=== PATIENT | female | born 1950 | race Caucasian/White ===

== ENCOUNTER 2018-11-11 13:16 | Emergency (ER) | payer MEDICARE, OTHER ==
--- NOTE | 2018-11-11 14:20 | ER Document Report ---
ED Medical Screen (RME) - General Chief Complaint: Cough Stated Complaint: COUGH,CONGESTION Time Seen by Provider: 11/11/18 14:14 Mode of Arrival: Ambulatory Information source: Patient Notes: Patient is a 68-year-old female who presents to the emergency department complaining of dizziness, fatigue, cough, and sore throat that started on Sunday. Patient reports she did get influenza vaccine this year. Patient denies any fever. Patient reports history of pneumonia. Exam: Lung sounds clear to auscultation bilaterally. I have greeted and performed a rapid initial assessment of this patient. A comprehensive ED assessment and evaluation of the patient, analysis of test results and completion of the medical decision making process will be conducted by additional ED providers. Dictation of this chart was performed using voice recognition software; therefore, there may be some unintended grammatical errors. TRAVEL OUTSIDE OF THE [place] IN LAST 30 DAYS: No - Related Data Allergies/Adverse Reactions: Penicillins Allergy (Verified 11/11/18 13:21) Physical Exam - Vital signs Vitals: Temp Pulse Resp BP Pulse Ox 98.5 F 91 17 149/57 H 97 11/11/18 13:32 11/11/18 13:32 11/11/18 13:32 11/11/18 13:32 11/11/18 13:32 Course - Vital Signs Vital signs: Temp Pulse Resp BP Pulse Ox 98.5 F 91 17 149/57 H 97 11/11/18 13:32 11/11/18 13:32 11/11/18 13:32 11/11/18 13:32 11/11/18 13:32
--- NOTE | 2018-11-11 15:04 | RADIOLOGY REPORT (SQ) ---
EXAM DESCRIPTION: CHEST 2 VIEWS COMPLETED DATE/TIME: 11/11/2018 2:56 pm REASON FOR STUDY: productive cough, fatigue COMPARISON: None. EXAM PARAMETERS: NUMBER OF VIEWS: two views TECHNIQUE: Digital Frontal and Lateral radiographic views of the chest acquired. RADIATION DOSE: NA LIMITATIONS: none FINDINGS: LUNGS AND PLEURA: No opacities, masses or pneumothorax. No pleural effusion. MEDIASTINUM AND HILAR STRUCTURES: No masses or contour abnormalities. HEART AND VASCULAR STRUCTURES: Heart normal size. No evidence for failure. BONES: No acute findings. HARDWARE: None in the chest. OTHER: No other significant finding. IMPRESSION: NO ACUTE RADIOGRAPHIC FINDING IN THE CHEST. TECHNICAL DOCUMENTATION: JOB ID: [id number] [employer]- All Rights Reserved Reading location - IP/workstation name: [email or web address]
[2018-11-11 15:46] LABS: ABSOLUTE BASOPHILS # (AUTO) 0.1 10^3/uL (0.0-0.2); ABSOLUTE EOSINOPHILS # (AUTO) 0.5 10^3/uL (0.0-0.6); ABSOLUTE LYMPHOCYTES (AUTO) 2.2 10^3/uL (0.5-4.7); ABSOLUTE MONOCYTES (AUTO) 0.8 10^3/uL (0.1-1.4); ABSOLUTE NEUT (AUTO) 9.2 10^3/uL (1.7-8.2); BASOPHILS % (AUTO) 0.5 % (0-2); EOSINOPHILS % (AUTO) 3.9 % (0-6); HEMOGLOBIN 12.6 g/dL (12.0-15.5); LYMPHOCYTES % (AUTO) 17.5 % (13-45); MEAN CORPUSCULAR HEMOGLOBIN 30.9 pg (27.0-33.4); MEAN CORPUSCULAR VOLUME 93 fl (80-97); MONOCYTES % (AUTO) 6.5 % (3-13); PLATELET COUNT 265 10^3/uL (150-450); RED BLOOD COUNT 4.07 10^6/uL (3.72-5.28); RED CELL DISTRIBUTION WIDTH 12.9 % (11.5-14.0); SEGMENTED NEUTROPHILS % (AUTO) 71.6 % (42-78); TOTAL CELLS COUNTED % (AUTO) 100 %; WHITE BLOOD COUNT 12.8 10^3/uL (4.0-10.5)
[2018-11-11 15:56] LABS: APPEARANCE,URINE CLOUDY; BILIRUBIN,URINE NEGATIVE (NEGATIVE); COLOR,URINE AMBER; GLUCOSE, URINE NEGATIVE (NEGATIVE); KETONES,URINE NEGATIVE (NEGATIVE); LEUKOCYTE ESTERASE,URINE NEGATIVE (NEGATIVE); NITRITE,URINE NEGATIVE (NEGATIVE); PROTEIN,URINE 30 mg/dL (NEGATIVE); URINE SPECIFIC GRAVITY 1.025; UROBILINOGEN,URINE NEGATIVE mg/dL (<2.0)
[2018-11-11 16:09] LABS: ALANINE AMINOTRANSFERASE 41 U/L (9-52); ALBUMIN 3.9 g/dL (3.5-5.0); ALKALINE PHOSPHATASE 114 U/L (38-126); ANION GAP 10 (5-19); ASPARTATE AMINO TRANSFERASE 28 U/L (14-36); BILIRUBIN,DIRECT 0.3 mg/dL (0.0-0.4); BILIRUBIN,TOTAL 0.3 mg/dL (0.2-1.3); BLOOD UREA NITROGEN 20 mg/dL (7-20); CALCIUM 9.6 mg/dL (8.4-10.2); CARBON DIOXIDE 31 mmol/L (22-30); CHLORIDE 101 mmol/L (98-107); GLUCOSE 104 mg/dL (75-110); POTASSIUM 3.8 mmol/L (3.6-5.0); SODIUM 141.8 mmol/L (137-145); TOTAL PROTEIN 7.5 g/dL (6.3-8.2)
--- NOTE | 2018-11-11 17:35 | ER Document Report ---
ED General - General Chief Complaint: Cough Stated Complaint: COUGH,CONGESTION Time Seen by Provider: 11/11/18 14:14 Mode of Arrival: Ambulatory Notes: Patient is a 68-year-old female who presents to the emergency department complaining of dizziness, fatigue, cough, and sore throat that started on Sunday. Patient reports she did get influenza vaccine this year. Patient denies any fever. Patient reports history of pneumonia. TRAVEL OUTSIDE OF THE [place] IN LAST 30 DAYS: No - Related Data Allergies/Adverse Reactions: Penicillins Allergy (Verified 11/11/18 13:21) Past Medical History - General Information source: Patient - Social History Smoking Status: Never Smoker Chew tobacco use (# tins/day): No Frequency of alcohol use: None Drug Abuse: None Family History: Reviewed & Not Pertinent Patient has suicidal ideation: No Patient has homicidal ideation: No - Past Medical History Cardiac Medical History: Reports: Hx Hypercholesterolemia, Hx Hypertension Pulmonary Medical History: Reports: Hx Bronchitis, Hx Pneumonia Renal/ Medical History: Denies: Hx Peritoneal Dialysis GI Medical History: Reports: Hx Gastroesophageal Reflux Disease Psychiatric Medical History: Reports: Hx Depression - Anxiety Past Surgical History: Reports: Hx Mastectomy - double mastectomy Review of Systems - Review of Systems Constitutional: See HPI EENT: See HPI Cardiovascular: No symptoms reported Respiratory: See HPI Gastrointestinal: No symptoms reported Genitourinary: No symptoms reported Female Genitourinary: No symptoms reported Musculoskeletal: No symptoms reported Skin: No symptoms reported Hematologic/Lymphatic: No symptoms reported Neurological/Psychological: No symptoms reported Physical Exam - Vital signs Vitals: Temp Pulse Resp BP Pulse Ox 98.5 F 91 17 149/57 H 97 11/11/18 13:32 11/11/18 13:32 11/11/18 13:32 11/11/18 13:32 11/11/18 13:32 - Notes Notes: PHYSICAL EXAMINATION: GENERAL: Well-appearing, well-nourished and in no acute distress. HEAD: Atraumatic, normocephalic. EYES: Pupils equal round and reactive to light, extraocular movements intact, conjunctiva are normal. ENT: Nares patent, oropharynx clear without exudates. Moist mucous membranes. NECK: Normal range of motion, supple without lymphadenopathy LUNGS: Mild expiratory wheezes with rhonchi throughout. HEART: Regular rate and rhythm without murmurs ABDOMEN: Soft, nontender, nondistended abdomen. No guarding, no rebound. No masses appreciated. Female : deferred Musculoskeletal: Normal range of motion, no pitting or edema. No cyanosis. NEUROLOGICAL: Cranial nerves grossly intact. Normal speech, normal gait. Normal sensory, motor exams PSYCH: Normal mood, normal affect. SKIN: Warm, Dry, normal turgor, no rashes or lesions noted. Course - Re-evaluation Re-evalutation: Labs as recorded are unremarkable other than a mild leukocytosis of 12.8. Chest x-ray is negative for any acute infiltrates. Patient reports she has had recurrent bronchitis in the past. She will be discharged home with prednisone and Flonase. She is also given a prescription for Zithromax as she is allergic to penicillins patient encouraged to not fill this until she has been sick for at least 10 days. Patient given this prescription as she states she is leaving tomorrow to travel and will not have access to a medical provider. - Vital Signs Vital signs: Temp Pulse Resp BP Pulse Ox 98.6 F 98 18 127/56 H 97 11/11/18 17:37 11/11/18 17:37 11/11/18 17:37 11/11/18 17:37 11/11/18 17:37 - Laboratory Result Diagrams: 11/11/18 15:15 11/11/18 15:15 Laboratory results interpreted by me: 11/11/18 11/11/18 11/11/18 15:02 15:15 15:15 WBC 12.8 H Absolute Neutrophils 9.2 H Carbon Dioxide 31 H Urine Protein 30 H Discharge - Discharge Clinical Impression: Viral upper respiratory illness Condition: Stable Disposition: HOME, SELF-CARE Additional Instructions: UPPER RESPIRATORY ILLNESS: You have a viral infection of the respiratory passages -- a "cold." This common infection causes nasal congestion, drainage, and often sore throat and cough. It is highly contagious. The disease usually lasts about 10 to 14 days. There is no "cure" for the viral infection -- it must run its course. If there is a complication, such as bacterial infection in the nose, sinuses, middle ear, or bronchial tubes, antibiotics may be required. The antibiotics won't affect the virus. Drink plenty of fluids. A humidifier may help. An expectorant medication or decongestant may make you more comfortable. Use acetaminophen or ibuprofen for fever or aches. See the doctor if fever persists over two days, if there is any significant worsening of your symptoms, or if you simply fail to improve as expected. STEROID MEDICATION: You have been given an injection of or oral medicine of the cortisone/steroid class. This medication is used to control inflammation or allergy. Royal t is usually only given for a short period of time, until the acute process subsides. There are usually no side effects from short-term use of cortisone-like medications. Some persons feel an increased sense of well-being and are not sleepy at bedtime. Long-term use of cortisone medications is best avoided, unless required for a severe condition. If your condition does not remit, or relapses after the course of corticosteroid medication, you should consult your physician. SMOKING: If you smoke, you should stop smoking. The tar and chemicals in cigarette smoke are harmful. Smoking has been shown to cause: emphysema chronic bronchitis lung cancer mouth and throat cancer stomach and pancreas cancer premature aging defects In addition, smoking increases ear and lung infections in children of smokers. FOLLOW-UP CARE: If you have been referred to a physician for follow-up care, call the physicians office for an appointment as you were instructed or within the next two days. If you experience worsening or a significant change in your symptoms, notify the physician immediately or return to the Emergency Department at any time for re-evaluation. Your blood work and x-ray today were normal. Your likely suffering from a viral upper respiratory illness. Please take medications as prescribed. Follow-up with your primary care provider in the next 3-5 days for follow-up. Return to the emergency department with any new or worsening symptoms to include shortness of breath, difficulty breathing or development of chest pain. Prescriptions: Benzonatate [Tessalon Perles 100 mg Capsule] 100 mg PO Q8HP PRN #40 capsule PRN Reason: Doxycycline Hyclate 100 mg PO BID #14 capsule Prednisone [Deltasone 20 mg Tablet] 3 tab PO DAILY 5 Days #15 tablet Forms: Return to Work
[2018-11-11 17:38] VITALS: BP 127/56
== END 2018-11-11 17:42 | disposition home or self-care (01) ==
LOC: ER 13:16
DX: J06.9 Acute upper respiratory infection, unspecified (principal); B34.9 Viral infection, unspecified; R42 Dizziness and giddiness; R53.83 Other fatigue; Z88.0 Allergy status to penicillin; E78.00 Pure hypercholesterolemia, unspecified; I10 Essential (primary) hypertension; Z90.13 Acquired absence of bilateral breasts and nipples
CPT/HCPCS: 36415; 71046; 80053; 81001; 85025; 99283

== ENCOUNTER → 2019-04-23 | Outpatient (CLI) | payer MEDICARE, MEDICAID ==
--- NOTE | 2019-04-23 11:07 | RADIOLOGY REPORT (SQ) ---
EXAM DESCRIPTION: KNEE LEFT 4 VIEWS COMPLETED DATE/TIME: 04/23/2019 10:35 am REASON FOR STUDY: ACUTE PAIN OF LEFT KNEE M25.562 PAIN IN LEFT KNEE COMPARISON: None. NUMBER OF VIEWS: Four views. TECHNIQUE: AP, lateral, and both oblique radiographic images acquired of the left knee. LIMITATIONS: None. FINDINGS: MINERALIZATION: Normal. BONES: No acute fracture or dislocation. No worrisome bone lesions. JOINT: No effusion. SOFT TISSUES: No soft tissue swelling. No radio-opaque foreign body. OTHER: No other significant finding. IMPRESSION: NEGATIVE STUDY OF THE LEFT KNEE. NO RADIOGRAPHIC EVIDENCE OF ACUTE INJURY. TECHNICAL DOCUMENTATION: JOB ID: [id number] [employer]- All Rights Reserved Reading location - IP/workstation name: [email or web address]
== END ==
LOC: OD 10:08
PROVIDERS: ATTEND Family Medicine
DX: M25.562 Pain in left knee (principal)

== ENCOUNTER 2020-04-15 05:42 | Observation (INO) | payer MEDICARE, MEDICAID ==
[2020-04-12 09:51] LABS: ABSOLUTE BASOPHILS # (AUTO) 0.1 10^3/uL (0.0-0.2); ABSOLUTE EOSINOPHILS # (AUTO) 0.4 10^3/uL (0.0-0.6); ABSOLUTE LYMPHOCYTES (AUTO) 1.8 10^3/uL (0.5-4.7); ABSOLUTE MONOCYTES (AUTO) 0.6 10^3/uL (0.1-1.4); ABSOLUTE NEUT (AUTO) 5.1 10^3/uL (1.7-8.2); BASOPHILS % (AUTO) 1.2 % (0-2); EOSINOPHILS % (AUTO) 4.7 % (0-6); HEMATOCRIT 38.6 % (36.0-47.0); HEMOGLOBIN 12.9 g/dL (12.0-15.5); LYMPHOCYTES % (AUTO) 22.9 % (13-45); MEAN CORPUSCULAR HEMOGLOBIN 31.3 pg (27.0-33.4); MEAN CORPUSCULAR HGB CONC 33.5 g/dL (32.0-36.0); MEAN CORPUSCULAR VOLUME 93 fl (80-97); MONOCYTES % (AUTO) 7.5 % (3-13); PLATELET COUNT 273 10^3/uL (150-450); RED BLOOD COUNT 4.14 10^6/uL (3.72-5.28); RED CELL DISTRIBUTION WIDTH 14.7 % (11.5-14.0); SEGMENTED NEUTROPHILS % (AUTO) 63.7 % (42-78); TOTAL CELLS COUNTED % (AUTO) 100 %
[2020-04-12 10:22] LABS: ANION GAP 9 (5-19); BLOOD UREA NITROGEN 20 mg/dL (7-20); CALCIUM 9.3 mg/dL (8.4-10.2); CARBON DIOXIDE 31 mmol/L (22-30); CHLORIDE 101 mmol/L (98-107); GLUCOSE 85 mg/dL (75-110); POTASSIUM 4.2 mmol/L (3.6-5.0)
--- NOTE | 2020-04-12 12:15 | RADIOLOGY REPORT (SQ) ---
EXAM DESCRIPTION: CHEST PA/LATERAL IMAGES COMPLETED DATE/TIME: 04/12/2020 10:16 am REASON FOR STUDY: PRE-OP COMPARISON: 11/11/2018 EXAM PARAMETERS: NUMBER OF VIEWS: two views TECHNIQUE: Digital Frontal and Lateral radiographic views of the chest acquired. RADIATION DOSE: NA LIMITATIONS: none FINDINGS: LUNGS AND PLEURA: No opacities, masses or pneumothorax. No pleural effusion. MEDIASTINUM AND HILAR STRUCTURES: No masses or contour abnormalities. HEART AND VASCULAR STRUCTURES: Heart normal size. No evidence for failure. BONES: No acute findings. HARDWARE: None in the chest. OTHER: No other significant finding. IMPRESSION: NO SIGNIFICANT RADIOGRAPHIC FINDING IN THE CHEST. TECHNICAL DOCUMENTATION: JOB ID: [id number] 2010 [employer]- All Rights Reserved Reading location - IP/workstation name: [email or web address]
--- NOTE | 2020-04-12 12:32 | EKG REPORT ---
SEVERITY:- BORDERLINE ECG - SINUS RHYTHM BORDERLINE T WAVE ABNORMALITIES : Confirmed by: Cesar Marie MD 12-Apr-2020 12:30:20
[2020-04-12 12:43] LABS: APPEARANCE,URINE CLEAR; BILIRUBIN,URINE NEGATIVE (NEGATIVE); COLOR,URINE YELLOW; GLUCOSE, URINE NEGATIVE (NEGATIVE); KETONES,URINE NEGATIVE (NEGATIVE); LEUKOCYTE ESTERASE,URINE SMALL (NEGATIVE); NITRITE,URINE NEGATIVE (NEGATIVE); PROTEIN,URINE NEGATIVE (NEGATIVE); URINE SPECIFIC GRAVITY 1.019; UROBILINOGEN,URINE NEGATIVE mg/dL (<2.0)
[~2020-04-15 05:42] MED LIST: ACETAMINOPHEN 325 MG TABLET ONE; ACETAMINOPHEN 325 MG TABLET PO PRN; CEFAZOLIN 2 GM/D5W RTU 2 GM/50 ML RTUPB IV ONE; CEFAZOLIN 2 GM/D5W RTU 2 GM/50 ML RTUPB IV PRN; CELECOXIB 200 MG CAPSULE ONE; CELECOXIB 200 MG CAPSULE PO PRN; GABAPENTIN 100 MG CAPSULE ONE; GABAPENTIN 100 MG CAPSULE PO PRN; ONDANSETRON HCL INJ/PF 4 MG/2 ML SDV IV PRN; ONDANSETRON HCL INJ/PF 4 MG/2 ML SDV ONE; OXYCODONE HCL SR 10 MG TABLET PO ONE; OXYCODONE HCL SR 10 MG TABLET PO PRN; SCOPOLAMINE HYDROBROMIDE 1.5 MG PATCH.TD72 ONE; SCOPOLAMINE HYDROBROMIDE 1.5 MG PATCH.TD72 TD PRN; TRAMADOL HCL 50 MG TABLET ONE; TRAMADOL HCL 50 MG TABLET PO PRN; TRANEXAMIC ACID INJ/PF 1,000 MG/10 ML SDV IV PRN; VANCOMYCIN HCL 1,000 MG in DEXTROSE 5%-WATER 250 ML IV PRN
[2020-04-15] MEDS ORDERED: KETAMINE HCL INJ 500 MG/10 ML VIAL ONE (06:49)
[2020-04-15] MEDS ORDERED: FENTANYL CITRATE INJ/PF 100 MCG/2 ML AMPUL ONE ×3 (06:49→10:30)
[2020-04-15] MEDS ORDERED: MIDAZOLAM 2 MG/2 ML INJ ONE (06:50)
[2020-04-15] MEDS ORDERED: PROPOFOL INJ 200 MG/20 ML VIAL IV ONE (06:50)
[2020-04-15 06:58] LABS: ALBUMIN 4.4 g/dL (3.5-5.0); C-REACTIVE PROTEIN 6.4 mg/L (<10.0)
[2020-04-15] MEDS ORDERED: TRANEXAMIC ACID INJ/PF 1,000 MG/10 ML SDV ONE (06:59)
[2020-04-15] MEDS ORDERED: HYDROMORPHONE HCL INJ/PF 2 MG/ML AMPULE ONE (07:09)
[2020-04-15] MEDS ORDERED: LIDOCAINE 1% INJ-PF (10 MG/ML) 30 ML SDV ONE (07:11)
[2020-04-15] MEDS ORDERED: BUPIVACAINE HCL 0.25 % INJ/PF (2.5 MG/1 ML) 30 ML VIAL ONE (07:11)
[2020-04-15] MEDS ORDERED: KETOROLAC TROMETHAMINE INJ/PF 30 MG/1 ML SDV ONE (07:12)
[2020-04-15] MEDS ORDERED: MORPHINE SULFATE 10 MG/ML INJ IV PRN (07:21)
[2020-04-15] MEDS ORDERED: DOCUSATE SODIUM 100 MG CAPSULE PO PRN (07:21)
[2020-04-15] MEDS ORDERED: OXYCODONE HCL IR 5 MG TABLET PO PRN ×3 (07:21)
[2020-04-15] MEDS ORDERED: NORMAL SALINE 1000 ML 1,000 ML IV ONE (07:21)
[2020-04-15] MEDS ORDERED: DIPHENHYDRAMINE HCL 25 MG CAPSULE PO PRN (07:21)
[2020-04-15] MEDS ORDERED: TRAMADOL HCL 50 MG TABLET PO PRN (07:21)
[2020-04-15] MEDS ORDERED: TRANEXAMIC ACID INJ/PF 1,000 MG/10 ML SDV IV ONE (07:21)
[2020-04-15] MEDS ORDERED: PANTOPRAZOLE SODIUM 20 MG TABLET.DR PO ONE (07:21)
[2020-04-15] MEDS ORDERED: ZOLPIDEM TARTRATE 5 MG TABLET PO PRN (07:21)
[2020-04-15] MEDS ORDERED: DEXAMETHASONE SOD PHOS INJ 10 MG/1 ML VIAL IV ONE (07:21)
[2020-04-15] MEDS ORDERED: ONDANSETRON 4 MG TAB.RAPDIS PO PRN (07:21)
[2020-04-15] MEDS ORDERED: EPHEDRINE SULFATE INJ 50 MG/1 ML AMPULE ONE (08:17)
[2020-04-15] MEDS ORDERED: VANCOMYCIN HCL INJ 1000 MG VIAL ONE (08:32)
[2020-04-15] MEDS ORDERED: ONDANSETRON HCL INJ/PF 4 MG/2 ML SDV IV PRN (08:49)
[2020-04-15] MEDS ORDERED: OXYCODONE-ACETAMINOPHEN 5-325 MG TABLET PO PRN ×2 (08:49)
[2020-04-15] MEDS ORDERED: MEPERIDINE HCL/PF INJ 25 MG/1 ML DISP.SYRIN IV PRN (08:49)
[2020-04-15] MEDS ORDERED: DIPHENHYDRAMINE HCL 50 MG/ML VIAL IV PRN (08:49)
[2020-04-15] MEDS ORDERED: FENTANYL CITRATE INJ/PF 100 MCG/2 ML AMPUL IV PRN ×3 (08:49)
[2020-04-15] MEDS ORDERED: PROMETHAZINE HCL INJ 25 MG/1 ML VIAL IV PRN ×2 (08:49)
--- NOTE | 2020-04-15 09:36 | Operative Report ---
Operative Report DATE OF SURGERY: 04/15/20 PREOPERATIVE DIAGNOSIS: Left hip severe primary osteoarthritis POSTOPERATIVE DIAGNOSIS: Left hip primary severe osteoarthritis OPERATION: Left total hip arthroplasty SURGEON: HENRRY BARKSDALE JR ANESTHESIA: Spinal COMPLICATIONS: None ESTIMATED BLOOD LOSS: 200 cc PROCEDURE: Implants: Gurvinder Accolade 2 size 5 femoral stem with standard offset, a Trident 2 size 52 cup, and a standard liner, a -5 neck length 36 mm ceramic head BRIEF HISTORY: 70 year old female with severe degenerative arthritis of left hip, which has failed conservative treatment and has elected for a total hip arthroplasty. Risks include but are not limited to bleeding, infection, anesthesia, , injury to nerve or vessel, pain, scar, leg length inequality, dislocation, future surgery, and blood clots. Patient read through the pre-op counseling form and signed and consented for surgery on their left hip. OPERATIVE PROCEDURE: Patient was brought to the operating room on and underwent spinal anesthesia. 2 grams of Ancef and 1 g of vancomycin was given. After proper anesthesia was obtained, patient was positioned, padded, prepped, and draped in the usual sterile fashion on the operating room table. Appropriate time out was performed. An anterior approach to the hip was undertaken with meticulous hemostasis through the deep interval. A capsulectomy was performed followed by exposure of the femoral neck. The femoral neck was cut in line with the femoral broach and the femoral head was removed. The acetabulum was then exposed with three retractors in an atraumatic fashion. Soft tissue and osteophytes were removed. Medialization reaming was performed followed by anatomic reaming up to accept a 52 mm acetabulum. Wound was irrigated with dilute betadyne solution and the 52 mm acetabulum was impacted into correct position and stability checked by manipulating the impaction handle which rocked the pelvis. A standard liner was impacted into the shell with good stability. Potential impinging osteophytes were removed. Attention was then directed toward the femur, which was exposed with two retractors in an atraumatic fashion. A bone hook was placed to carefully perform releases along the superior capsule until the femur was safely delivered through the wound. A box feeder was utilized followed by lateralization rasping and then broaching up to accept a 5 femur. With a 132 offset neck and a -5 head, stability was good in flexion and extension with near equal (patient started off approximately 2 cm short) on the operative side leg lengths. The real 132 offset femur was impacted into a copiously irrigated femoral canal. A 36 mm ceramic head was impacted on a clean dry femoral taper. The hip was irrigated and reduced, further irrigation with antibiotic solution, betadine solution, then antibiotic solution. Bleeders were coagulated with bovie cautery. The fascia was then closed with number 2 Stratofix; the subcutaneous tissue closed with interrupted inverted 2-0 monocryl then running 3-0 monocryl subcuticular. A silver dressing was then applied. All needle sponge and instrument counts were correct. Patient was awakened from sedation anesthesia and taken to recovery room in good condition. Thank you, Henrry Barksdale, DO
[2020-04-15] MEDS ORDERED: ROPIVACAINE HCL 0.5% INJ/PF (5 MG/1 ML) 30 ML SDV ONE (09:43)
[2020-04-15] MEDS ORDERED: (PENDING PHARMACY ID) (Lisinopril/Hydrochlorothiazide [Lisinopril-Hctz 20-25 Mg Tab] 1 EAC PO SCH (10:00)
[2020-04-15] MEDS ORDERED: MORPHINE SULFATE 10 MG/ML INJ ONE (10:23)
[2020-04-15] MEDS: MORPHINE SULFATE 10 MG/ML INJ IV PRN ×2 (10:30→10:45)
--- NOTE | 2020-04-15 11:26 | RADIOLOGY REPORT (SQ) ---
EXAM DESCRIPTION: NO CHG FLUORO; HIP IN OPERATING RM IMAGES COMPLETED DATE/TIME: 04/15/2020 9:37 am REASON FOR STUDY: LEFT HIP ARTHROPLASTY ASSISTED WITH FLUORO IN OR M16.12 UNILATERAL PRIMARY OSTEOA RTHRITIS, LEFT HIP M25.552 PAIN IN LEFT HIP Z79.899 OTHER [facility] (CURRENT) DRUG THERAPY COMPARISON: None. FLUOROSCOPY TIME: 0.1 minutes 1 Images saved to PACS TECHNIQUE: Intra-operative images acquired during surgical procedure to evaluate progress. NUMBER OF IMAGES: 1 LIMITATIONS: None. FINDINGS: Limited intraoperative fluoroscopic images obtained demonstrate evidence of left hip arthr oplasty. Please see operative report for detailed description. IMPRESSION: IMAGE(S) OBTAINED DURING PROCEDURE. COMMENT: Quality ID [id number]: Final reports for procedures using fluoroscopy that document radiation exp osure indices, or exposure time and number of fluorographic images (if radiation exposure indices are not available) Please consult full operative report of the attending physician for description of the procedure. TECHNICAL DOCUMENTATION: JOB ID: [id number] 2010 [employer]- All Rights Reserved Reading location - IP/workstation name: [email or web address]
--- NOTE | 2020-04-15 11:26 | RADIOLOGY REPORT (SQ) ---
EXAM DESCRIPTION: NO CHG FLUORO; HIP IN OPERATING RM IMAGES COMPLETED DATE/TIME: 04/15/2020 9:37 am REASON FOR STUDY: LEFT HIP ARTHROPLASTY ASSISTED WITH FLUORO IN OR M16.12 UNILATERAL PRIMARY OSTEOA RTHRITIS, LEFT HIP M25.552 PAIN IN LEFT HIP Z79.899 OTHER [facility] (CURRENT) DRUG THERAPY COMPARISON: None. FLUOROSCOPY TIME: 0.1 minutes 1 Images saved to PACS TECHNIQUE: Intra-operative images acquired during surgical procedure to evaluate progress. NUMBER OF IMAGES: 1 LIMITATIONS: None. FINDINGS: Limited intraoperative fluoroscopic images obtained demonstrate evidence of left hip arthr oplasty. Please see operative report for detailed description. IMPRESSION: IMAGE(S) OBTAINED DURING PROCEDURE. COMMENT: Quality ID 145: Final reports for procedures using fluoroscopy that document radiation exp osure indices, or exposure time and number of fluorographic images (if radiation exposure indices are not available) Please consult full operative report of the attending physician for description of the procedure. TECHNICAL DOCUMENTATION: JOB ID: [id number] 2010 [employer]- All Rights Reserved Reading location - IP/workstation name: [email or web address]
--- NOTE | 2020-04-15 12:15 | RADIOLOGY REPORT (SQ) ---
EXAM DESCRIPTION: PELVIS AP IMAGES COMPLETED DATE/TIME: 04/15/2020 10:59 am REASON FOR STUDY: post op M16.12 UNILATERAL PRIMARY OSTEOARTHRITIS, LEFT HIP M25.552 PAIN IN LEFT HIP Z79.899 OTHER [facility] (CURRENT) DRUG THERAPY COMPARISON: None. NUMBER OF VIEWS: One view TECHNIQUE: AP Pelvis LIMITATIONS: None. FINDINGS: Postoperative image of the pelvis and proximal femurs shows a left hip arthroplasty in goo d position. IMPRESSION: Left hip arthroplasty. Refer to operative note for further information. COMMENT: Pelvic fractures are often occult on plain radiographs. If strong clinical suspicion for f racture, recommend CT or MR. TECHNICAL DOCUMENTATION: JOB ID: [id number] 2010 [employer]- All Rights Reserved Reading location - IP/workstation name: [email or web address]
[2020-04-15] MEDS: ASPIRIN 325 MG TABLET PO SCH (12:57)
[2020-04-15] MEDS: POLYETHYLENE GLYCOL 3350 POWDER 17 GM/1 PACKET PO SCH (12:57)
[2020-04-15] MEDS: CELECOXIB 200 MG CAPSULE PO SCH (12:57)
[2020-04-15] MEDS: VENLAFAXINE HCL 25 MG TABLET PO SCH (13:18)
[2020-04-15] MEDS: HYDROCHLOROTHIAZIDE 25 MG TABLET PO SCH (13:19)
[2020-04-15] MEDS: GABAPENTIN 100 MG CAPSULE PO SCH ×2 (13:21→22:15)
[2020-04-15] MEDS: LISINOPRIL 10 MG TABLET PO SCH (13:21)
[2020-04-15] MEDS ORDERED: CEFAZOLIN 2 GM/D5W RTU 2 GM/50 ML RTUPB IV SCH (14:00)
[2020-04-15] MEDS: KETOROLAC TROMETHAMINE INJ/PF 30 MG/1 ML SDV IV SCH ×2 (14:30→22:14)
[2020-04-15] MEDS: ACETAMINOPHEN 325 MG TABLET PO SCH ×2 (14:31→22:14)
[2020-04-15] MEDS: CEFAZOLIN SODIUM 2 GM in DEXTROSE 5%-WATER 100 ML IV SCH ×2 (14:31→22:15)
[2020-04-15] MEDS ORDERED: LIDOCAINE 2% INJ-PF (20 MG/ML) 2 ML AMPUL ONE (15:05)
[2020-04-15] MEDS ORDERED: ONDANSETRON HCL INJ/PF 4 MG/2 ML SDV ONE (15:05)
[2020-04-15] MEDS ORDERED: METOPROLOL TARTRATE PF/INJ 5 MG/5 ML SDV IV ONE (15:05)
[2020-04-15] MEDS ORDERED: PHENYLEPHRINE HCL INJ/PF 10 MG/1 ML SDV ONE (15:05)
[2020-04-15] MEDS: OXYCODONE HCL IR 5 MG TABLET PO PRN (20:37)
[2020-04-16] MEDS: KETOROLAC TROMETHAMINE INJ/PF 30 MG/1 ML SDV IV SCH ×2 (05:48→13:05)
[2020-04-16] MEDS: ACETAMINOPHEN 325 MG TABLET PO SCH ×3 (05:48→22:01)
--- NOTE | 2020-04-16 07:14 | PDOC PROGRESS REPORT ---
Subjective Progress Note for:: 04/16/20 Subjective:: The patient is doing well this AM. Pain is present but not out of proportion and well controlled on their current medications. She reported considerable pain last night and yesterday to the degree that it was difficult for her to ambulate, however improved this morning. There are no new symptoms or overnight events. Overall they are felling well without complaints. They deny chest pain, shortness of breath or motor or sensory loss. Reason For Visit: M16.12 UNILATERAL PRIMAR, M25.552 PAIN IN LEFT HIP Physical Exam Vital Signs: Temp Pulse Resp BP Pulse Ox 97.9 F 82 17 99/39 L 100 04/15/20 19:27 04/15/20 19:27 04/15/20 19:27 04/15/20 19:27 04/15/20 19:27 Intake & Output 04/15/20 04/16/20 04/17/20 06:59 06:59 06:59 Intake Total 0 5710 Output Total 50 Balance 0 5660 Weight 90 kg Physical Exam: Left lower extremity -Pulses 2+ distally -Compartments soft -Sensation grossly intact to L3-4-5 S1 -Motor grossly intact to EHL TA gastroc and quad No acute distress, alert and orient x3 Results Laboratory Results: 04/12/20 09:26 04/12/20 09:26 04/15/20 06:22 Blood Type A POSITIVE Antibody Screen NEGATIVE Impressions: Chest X-Ray 04/12/20 09:56 IMPRESSION: NO SIGNIFICANT RADIOGRAPHIC FINDING IN THE CHEST. Fluoroscopy 04/15/20 00:00 IMPRESSION: IMAGE(S) OBTAINED DURING PROCEDURE. Hip X-Ray 04/15/20 00:00 IMPRESSION: IMAGE(S) OBTAINED DURING PROCEDURE. Pelvis X-Ray 04/15/20 07:23 IMPRESSION: Left hip arthroplasty. Refer to operative note for further information. Assessment & Plan - Diagnosis (1) Status post total hip replacement, left Is this a current diagnosis for this admission?: Yes Plan: - 2 doses of Ancef postoperatively q 8 hours to complete 24 hours perioperat ively -Weightbearing as tolerated, no precautions, encourage out of bed JUSTUS for ADL training - PT/OT - Keep knee extended in bed, rolled towel under the ankle to obtain full extension -aspirin 325 daily for DVT prophylaxis for 6 weeks -multimodal pain management to avoid excessive narcotics, including gabapentin, tramadol, Toradol, acetaminophen. -Dressing should not be removed for 7 to 10 days until seen in the office -May shower with the dressing intact, if it starts to come off she should not get the incision wet. -Follow-up with Dr. Henrry Cortes, orthopedic surgeon at [facility] for surgery, in 10 days. Call for an appointment. . [address], [place] [address] - Time Time Spent with patient: Less than 15 minutes
[2020-04-16] MEDS: VENLAFAXINE HCL 25 MG TABLET PO SCH (09:13)
[2020-04-16] MEDS: GABAPENTIN 100 MG CAPSULE PO SCH ×2 (09:13→22:01)
[2020-04-16] MEDS: CELECOXIB 200 MG CAPSULE PO SCH (09:13)
[2020-04-16] MEDS: ASPIRIN 325 MG TABLET PO SCH (09:13)
[2020-04-16] MEDS: LISINOPRIL 10 MG TABLET PO SCH (09:14)
[2020-04-16] MEDS: HYDROCHLOROTHIAZIDE 25 MG TABLET PO SCH (09:14)
[2020-04-16] MEDS: POLYETHYLENE GLYCOL 3350 POWDER 17 GM/1 PACKET PO SCH (09:14)
[2020-04-16] MEDS: MORPHINE SULFATE 10 MG/ML INJ IV PRN (09:38)
[2020-04-17] MEDS: MORPHINE SULFATE 10 MG/ML INJ IV PRN (04:38)
[2020-04-17] MEDS: ACETAMINOPHEN 325 MG TABLET PO SCH (05:14)
--- NOTE | 2020-04-17 08:58 | PDOC DISCHARGE SUMMARY ---
Impression - Admit/DC Date/PCP Admission Date/Primary Care Provider: LEE RICCI DO Discharge Date: 04/17/20 - Discharge Diagnosis (1) Status post total hip replacement, left Is this a current diagnosis for this admission?: Yes - Assessment Summary: Mrs. Goldstein is a very pleasant 70-year-old female who presented to my clinic with chronic left pain that is been going on for over a year. After thorough work-up and attempts at conservative treatment including activity modification and [id number] pain medication, they were having severe difficulty with am bulation and was over the counter pain medication for daily activity. They found the pain debilitating and decreasing thier quality of life as they were unable to perform activities of daily living such as ambulating short distances and getting in and out of the car. After a thorough work-up including x-rays that demonstrated joint space narrowing, [id number] contact, subchondral sclerosis, and osteophyte formation as well as discussing risks and benefits and other treatment options, the patient elected to proceed with a left total hip arthroplasty. They were brought to the operating room on 04/15/2020 and underwent a left total hip and tolerated procedure very well with out complication. They were then admitted to the hospital floor for postoperative medical management, monitoring, and pain control. On postoperative day #1 they were ambulating well with physical therapy, to the degree that they approved them for discharge home. They remain in house for further care and disposition planning as well as continue physical therapy. They were deemed stable for discharge home on postoperative day #2 They were discharged home on 04/17/2020. They had no acute events or complications over the course of their stay. All detailed instructions and prescriptions were provided to the patient prior to admission on the year prior office visit. - Additional Information Resuscitation Status: Full Code Discharge Diet: As Tolerated Discharge Activity: Activity As Tolerated, No Driving, Keep Legs Elevated, Slowly Increase Activity, No tub bath, Walk Frequently Referrals: SARA BARKSDALE JR, DO [ACTIVE PROVISIONAL STAFF] - 04/26/20 9:10 am Home Medications: Buprenorphine 1 patch TOP TH@1000 04/12/20 Lisinopril/Hydrochlorothiazide [Lisinopril-Hctz 20-25 mg Tab] 1 each PO DAILY 04/12/20 Venlafaxine HCl [Effexor 25 mg Tablet] 25 mg PO DAILY 04/12/20 Acetaminophen [Tylenol 325 mg Tablet] 975 mg PO Q8 tablet 04/15/20 Aspirin [Aspirin 325 mg Tablet] 325 mg PO DAILY tablet 04/15/20 Celecoxib [Celebrex 200 mg Capsule] 200 mg PO DAILY capsule 04/15/20 Diphenhydramine HCl [Benadryl 25 mg Capsule] 25 mg PO Q6HP PRN capsule 04/15/20 Gabapentin [Neurontin 100 mg Capsule] 100 mg PO Q12 capsule 04/15/20 Oxycodone HCl [Oxy-Ir 5 mg Tablet] 5 mg PO NOW PRN tablet 04/15/20 Tramadol HCl [Ultram 50 mg Tablet] 50 mg PO Q4HP PRN tablet 04/15/20 History of Present Illiness History of Present Illness: GERARDO GOLDSTEIN is a 70 year old female Physical Exam Vital Signs: Temp Pulse Resp BP Pulse Ox 98.1 F 85 12 120/46 L 93 04/17/20 00:36 04/17/20 00:36 04/17/20 00:36 04/17/20 00:36 04/17/20 00:36 Intake & Output 04/16/20 04/17/20 04/18/20 06:59 06:59 06:59 Intake Total 5710 360 Output Total 50 Balance 5660 360 Results Laboratory Results: WBC 8.0 10^3/uL (4.0-10.5) 04/12/20 09:26 RBC 4.14 10^6/uL (3.72-5.28) 04/12/20 09:26 Hgb 12.9 g/dL (12.0-15.5) 04/12/20 09:26 Hct 38.6 % (36.0-47.0) 04/12/20 09:26 MCV 93 fl (80-97) 04/12/20 09:26 MCH 31.3 pg (27.0-33.4) 04/12/20 09:26 MCHC 33.5 g/dL (32.0-36.0) 04/12/20 09:26 RDW 14.7 % (11.5-14.0) H 04/12/20 09:26 Plt Count 273 10^3/uL (150-450) 04/12/20 09:26 Lymph % (Auto) 22.9 % (13-45) 04/12/20 09:26 [place] % (Auto) 7.5 % (3-13) 04/12/20 09:26 Eos % (Auto) 4.7 % (0-6) 04/12/20 09:26 Baso % (Auto) 1.2 % (0-2) 04/12/20 09:26 Absolute Neuts (auto) 5.1 10^3/uL (1.7-8.2) 04/12/20 09:26 Absolute Lymphs (auto) 1.8 10^3/uL (0.5-4.7) 04/12/20 09:26 Absolute Monos (auto) 0.6 10^3/uL (0.1-1.4) 04/12/20 09:26 Absolute Eos (auto) 0.4 10^3/uL (0.0-0.6) 04/12/20 09:26 Absolute Basos (auto) 0.1 10^3/uL (0.0-0.2) 04/12/20 09:26 Seg Neutrophils % 63.7 % (42-78) 04/12/20 09:26 ESR 51 mm/hr (0-30) H 04/15/20 06:22 Sodium 140.5 mmol/L (137-145) 04/12/20 09:26 Potassium 4.2 mmol/L (3.6-5.0) 04/12/20 09:26 Chloride 101 mmol/L (98-107) 04/12/20 09:26 Carbon Dioxide 31 mmol/L (22-30) H 04/12/20 09:26 Anion Gap 9 (5-19) 04/12/20 09:26 BUN 20 mg/dL (7-20) 04/12/20 09:26 Creatinine 0.75 mg/dL (0.52-1.25) 04/12/20 09:26 Est GFR ( Amer) > 60 (>60) 04/12/20 09:26 Est GFR (MDRD) Non-Af > 60 (>60) 04/12/20 09:26 Glucose 85 mg/dL (75-110) 04/12/20 09:26 Hemoglobin A1c % 5.2 % (4.7-6.0) 04/15/20 06:22 Calcium 9.3 mg/dL (8.4-10.2) 04/12/20 09:26 C-Reactive Protein 6.4 mg/L (<10.0) 04/15/20 06:22 Albumin 4.4 g/dL (3.5-5.0) 04/15/20 06:22 Vitamin D 25-Hydroxy 22.9 ng/mL (14.7-68.3) 04/15/20 06:22 Urine Color YELLOW 04/12/20 10:26 Urine Appearance CLEAR 04/12/20 10:26 Urine pH 5.0 (5.0-9.0) 04/12/20 10:26 Ur Specific [place] 1.019 04/12/20 10:26 Urine Protein NEGATIVE mg/dL (NEGATIVE) 04/12/20 10:26 Urine Glucose (UA) NEGATIVE mg/dL (NEGATIVE) 04/12/20 10:26 Urine Ketones NEGATIVE mg/dL (NEGATIVE) 04/12/20 10:26 Urine Blood NEGATIVE (NEGATIVE) 04/12/20 10:26 Urine Nitrite NEGATIVE (NEGATIVE) 04/12/20 10:26 Urine Bilirubin NEGATIVE (NEGATIVE) 04/12/20 10:26 Urine Urobilinogen NEGATIVE mg/dL (<2.0) 04/12/20 10:26 Ur Leukocyte Esterase SMALL (NEGATIVE) H 04/12/20 10:26 Urine WBC (Auto) 8 /HPF 04/12/20 10:26 Urine RBC (Auto) 1 /HPF 04/12/20 10:26 Squamous Epi Cells Auto <1 /HPF 04/12/20 10:26 Urine Mucus (Auto) RARE /LPF 04/12/20 10:26 Urine Ascorbic Acid 40 (NEGATIVE) H 04/12/20 10:26 COVID-19 Source NASOPHARYNGEAL 04/12/20 09:20 COVID-19 (KATHIE) NOT DETECTED 04/12/20 09:20 Blood Type A POSITIVE 04/15/20 06:22 Antibody Screen NEGATIVE 04/15/20 06:22 Impressions: Chest X-Ray 04/12/20 09:56 IMPRESSION: NO SIGNIFICANT RADIOGRAPHIC FINDING IN THE CHEST. Fluoroscopy 04/15/20 00:00 IMPRESSION: IMAGE(S) OBTAINED DURING PROCEDURE. Hip X-Ray 04/15/20 00:00 IMPRESSION: IMAGE(S) OBTAINED DURING PROCEDURE. Pelvis X-Ray 04/15/20 07:23 IMPRESSION: Left hip arthroplasty. Refer to operative note for further information. Stroke Is this a Stroke Patient?: No Acute Heart Failure - Is this a Heart Failure Patient?: No
[2020-04-17] MEDS: OXYCODONE HCL IR 5 MG TABLET PO PRN (09:34)
[2020-04-17] MEDS: CELECOXIB 200 MG CAPSULE PO SCH (09:34)
[2020-04-17] MEDS: GABAPENTIN 100 MG CAPSULE PO SCH (09:34)
[2020-04-17] MEDS: ASPIRIN 325 MG TABLET PO SCH (09:34)
[2020-04-17] MEDS: VENLAFAXINE HCL 25 MG TABLET PO SCH (09:34)
[2020-04-17 12:10] VITALS: BP 96/31
[2020-04-17] MEDS: POLYETHYLENE GLYCOL 3350 POWDER 17 GM/1 PACKET PO SCH (12:12)
[2020-04-17] MEDS: HYDROCHLOROTHIAZIDE 25 MG TABLET PO SCH (12:12)
[2020-04-17] MEDS: LISINOPRIL 10 MG TABLET PO SCH (12:12)
== END 2020-04-17 13:26 | disposition home health service (06) ==
LOC: OROUT 05:42 → 4W 05:42 → EDSTATUS 07:30 → OROUT 12:02 → 4W 12:02 → 4S 04-16 18:55 → OROUT 04-17 13:26 → 4S 04-17 13:26
PROVIDERS: ADMIT Orthopaedic Surgery; ATTEND Orthopaedic Surgery
DX: M16.12 Unilateral primary osteoarthritis, left hip (principal); I10 Essential (primary) hypertension; M79.7 Fibromyalgia; Z85.3 Personal history of malignant neoplasm of breast; Z87.891 Personal history of nicotine dependence; Z03.818 Encounter for observation for suspected exposure to other biological agents ruled out; Z79.82 Long term (current) use of aspirin; Z88.0 Allergy status to penicillin; Z79.899 Other long term (current) drug therapy
CPT/HCPCS: 27130; 93005; 86900; 86901; 36415 ×2; 86850; 82040; 85025; 85652; 86140; 80048; 81001; 83036; 82306; 71046; 73501; 72170; 93010; 97530 ×3; 97110; 97116 ×3; 97163; 97535; 97167; 64447; 76942; 01214; G0378 ×3; C1776 ×4; U0003; A9270 ×21; J2795; J2250; J0690 ×2; J3490 ×8; J3010; J1885 ×2; J2270 ×3; J2370; J2405; J7060 ×2; J2704; J3370; C9803; 87635; J1170; S0119

== ENCOUNTER 2020-04-27 05:24 | Inpatient (IN) | payer MEDICARE, MEDICAID ==
[~2020-04-27 05:24] MED LIST changes: -ACETAMINOPHEN 325 MG TABLET ONE; -ACETAMINOPHEN 325 MG TABLET PO PRN; -CELECOXIB 200 MG CAPSULE ONE; -CELECOXIB 200 MG CAPSULE PO PRN; -GABAPENTIN 100 MG CAPSULE ONE; -GABAPENTIN 100 MG CAPSULE PO PRN; -ONDANSETRON HCL INJ/PF 4 MG/2 ML SDV IV PRN; -ONDANSETRON HCL INJ/PF 4 MG/2 ML SDV ONE; -OXYCODONE HCL SR 10 MG TABLET PO ONE; -OXYCODONE HCL SR 10 MG TABLET PO PRN; -SCOPOLAMINE HYDROBROMIDE 1.5 MG PATCH.TD72 ONE; -SCOPOLAMINE HYDROBROMIDE 1.5 MG PATCH.TD72 TD PRN; -TRAMADOL HCL 50 MG TABLET ONE; -TRAMADOL HCL 50 MG TABLET PO PRN; -TRANEXAMIC ACID INJ/PF 1,000 MG/10 ML SDV IV PRN
[2020-04-27 06:02] LABS: APPEARANCE,URINE CLEAR; BILIRUBIN,URINE NEGATIVE (NEGATIVE); COLOR,URINE YELLOW; GLUCOSE, URINE NEGATIVE (NEGATIVE); KETONES,URINE NEGATIVE (NEGATIVE); LEUKOCYTE ESTERASE,URINE TRACE (NEGATIVE); NITRITE,URINE NEGATIVE (NEGATIVE); PROTEIN,URINE NEGATIVE (NEGATIVE); URINE SPECIFIC GRAVITY 1.017; UROBILINOGEN,URINE NEGATIVE mg/dL (<2.0)
[2020-04-27 06:23] LABS: ABSOLUTE BASOPHILS # (AUTO) 0.1 10^3/uL (0.0-0.2); ABSOLUTE EOSINOPHILS # (AUTO) 0.4 10^3/uL (0.0-0.6); ABSOLUTE LYMPHOCYTES (AUTO) 2.1 10^3/uL (0.5-4.7); ABSOLUTE MONOCYTES (AUTO) 0.6 10^3/uL (0.1-1.4); ABSOLUTE NEUT (AUTO) 4.3 10^3/uL (1.7-8.2); BASOPHILS % (AUTO) 1.4 % (0-2); EOSINOPHILS % (AUTO) 5.7 % (0-6); HEMATOCRIT 30.9 % (36.0-47.0); HEMOGLOBIN 10.3 g/dL (12.0-15.5); LYMPHOCYTES % (AUTO) 27.9 % (13-45); MEAN CORPUSCULAR HEMOGLOBIN 31.8 pg (27.0-33.4); MEAN CORPUSCULAR HGB CONC 33.4 g/dL (32.0-36.0); MEAN CORPUSCULAR VOLUME 95 fl (80-97); MONOCYTES % (AUTO) 7.3 % (3-13); PLATELET COUNT 463 10^3/uL (150-450); RED BLOOD COUNT 3.24 10^6/uL (3.72-5.28); RED CELL DISTRIBUTION WIDTH 14.7 % (11.5-14.0); SEGMENTED NEUTROPHILS % (AUTO) 57.7 % (42-78); TOTAL CELLS COUNTED % (AUTO) 100 %; WHITE BLOOD COUNT 7.5 10^3/uL (4.0-10.5)
[2020-04-27 06:36] LABS: ANION GAP 10 (5-19); BLOOD UREA NITROGEN 19 mg/dL (7-20); CALCIUM 8.8 mg/dL (8.4-10.2); CARBON DIOXIDE 28 mmol/L (22-30); CHLORIDE 103 mmol/L (98-107); GLUCOSE 90 mg/dL (75-110); POTASSIUM 4.5 mmol/L (3.6-5.0)
[2020-04-27] MEDS ORDERED: ONDANSETRON HCL INJ/PF 4 MG/2 ML SDV ONE (06:56)
[2020-04-27] MEDS ORDERED: PROPOFOL INJ 200 MG/20 ML VIAL IV ONE (06:56)
[2020-04-27] MEDS ORDERED: FENTANYL CITRATE INJ/PF 100 MCG/2 ML AMPUL ONE (06:56)
[2020-04-27] MEDS ORDERED: MIDAZOLAM 2 MG/2 ML INJ ONE (06:56)
[2020-04-27] MEDS ORDERED: EPHEDRINE SULFATE INJ 50 MG/1 ML AMPULE ONE (07:03)
[2020-04-27] MEDS ORDERED: KETOROLAC TROMETHAMINE INJ/PF 30 MG/1 ML SDV ONE (08:14)
[2020-04-27] MEDS ORDERED: BUPIVACAINE HCL 0.25 % INJ/PF (2.5 MG/1 ML) 30 ML VIAL ONE (08:14)
[2020-04-27] MEDS ORDERED: LIDOCAINE 1% INJ-PF (10 MG/ML) 30 ML SDV ONE (08:14)
[2020-04-27] MEDS ORDERED: VANCOMYCIN HCL INJ 1000 MG VIAL ONE (08:14)
[2020-04-27] MEDS ORDERED: TRANEXAMIC ACID INJ/PF 1,000 MG/10 ML SDV ONE (08:53)
[2020-04-27] MEDS ORDERED: MORPHINE SULFATE 10 MG/ML INJ IV PRN ×3 (09:20→10:21)
[2020-04-27] MEDS ORDERED: MEPERIDINE HCL/PF INJ 25 MG/1 ML DISP.SYRIN IV PRN (09:20)
[2020-04-27] MEDS ORDERED: DIPHENHYDRAMINE HCL 50 MG/ML VIAL IV PRN (09:20)
[2020-04-27] MEDS ORDERED: FENTANYL CITRATE INJ/PF 100 MCG/2 ML AMPUL IV PRN ×3 (09:20)
[2020-04-27] MEDS ORDERED: PROMETHAZINE HCL INJ 25 MG/1 ML VIAL IV PRN ×2 (09:20)
[2020-04-27] MEDS ORDERED: OXYCODONE-ACETAMINOPHEN 5-325 MG TABLET PO PRN (09:20)
--- NOTE | 2020-04-27 10:20 | Operative Report ---
Operative Report DATE OF SURGERY: 04/27/20 PREOPERATIVE DIAGNOSIS: Left hip postoperative seroma POSTOPERATIVE DIAGNOSIS: Left hip postoperative superficial seroma OPERATION: Left hip superficial I&D SURGEON: SARA BARKSDALE JR ANESTHESIA: GA COMPLICATIONS: None ESTIMATED BLOOD LOSS: 100 cc PROCEDURE: The patient was brought in the operating suite and laid supine on the operating table. They are provided 2 g of Ancef and 1 g of vancomycin preoperatively. They are provided with general anesthesia and after adequate anesthesia the left lower extremities and prepped and draped essential fashion. A timeout was performed followed by marking the prior incision. Incision was made and carried through the skin. Preoperatively a mild amount of weeping was occurring through multiple small areas in the wound. Upon incising immediate flow of serous material was appreciated. This was serosanguineous in appearance. Multiple cultures were taken. We further exposed to the fascia which appeared to be intact. At this point thorough debridement was performed with a large unger elevator and cultures were sent for in specimen cups. After 3 L of Betadine impregnated solution and thorough debridement the fascia was then further explored. I was unable to appreciate much fluctuance under the fascia or any area of potential leakage or communication to the hip joint. In order to further evaluate for deep seroma, I decided to aspirate the intra-articular portion. A 18-gauge spinal needle was used outside of the wound and clean nondilated tissue and directed towards the hip joint. The needle tip was appreciably against the implant and aspiration was performed which was only able to return approximately 5 cc of serosanguineous fluid without appearance of infection. This was also sent for culture. given the low return in appearance, as well as the watertight closure of the fascia that had no apparent violation, the decision was made not to proceed deep to the hip joint in order to avoid potentially contaminating a sterile hip. At this point we proceeded to perform an Aricept soak and allow to sit for 2 minutes followed by 3 L of Betadine followed by further debridement and sent for a second culture of superficial tissue. A second Aricept soak was performed in this layer followed by a final 3 L of Betadine solution. Finally a thorough evaluation for any potential bleeding was performed. Ultimately this point the tissue all appeared to be healthy without necrotic appearance and there was no obvious bleeding source however the surrounding tissue did appear somewhat edematous and [place]. Any small bleeders were cauterized followed by the application of FloSeal that was spread throughout the wound followed by 1 g of vancomycin in the soft tissue. The wound was closed deep with #2 Quill. The superficial layer was closed with inverted interrupted 2-0 Monocryl and finally 3-0 Vicryl was used in the skin in a running horizontal mattress type stitch. A layer of Acticoat was placed over the wound followed by a negative pressure incisional dressing. Patient was then waking from anesthesia and transferred t he PACU in stable condition.
[2020-04-27] MEDS ORDERED: OXYCODONE HCL IR 5 MG TABLET PO PRN ×4 (10:21)
[2020-04-27] MEDS ORDERED: DIPHENHYDRAMINE HCL 25 MG CAPSULE PO PRN (10:21)
[2020-04-27] MEDS ORDERED: ZOLPIDEM TARTRATE 5 MG TABLET PO PRN (10:21)
[2020-04-27] MEDS ORDERED: DEXAMETHASONE SOD PHOS INJ 10 MG/1 ML VIAL IV ONE (10:21)
[2020-04-27] MEDS ORDERED: NORMAL SALINE 1000 ML 1,000 ML IV ONE (10:21)
[2020-04-27] MEDS ORDERED: DOCUSATE SODIUM 100 MG CAPSULE PO PRN (10:21)
[2020-04-27] MEDS ORDERED: PANTOPRAZOLE SODIUM 20 MG TABLET.DR PO ONE (10:21)
[2020-04-27] MEDS ORDERED: TRANEXAMIC ACID INJ/PF 1,000 MG/10 ML SDV IV ONE (10:21)
[2020-04-27] MEDS ORDERED: ONDANSETRON 4 MG TAB.RAPDIS PO PRN (10:21)
[2020-04-27] MEDS ORDERED: FUROSEMIDE 40 MG TABLET PO ONE (11:30)
[2020-04-27] MEDS: ACETAMINOPHEN 325 MG TABLET PO SCH ×3 (12:43→23:44)
[2020-04-27] MEDS ORDERED: CEFAZOLIN 2 GM/D5W RTU 2 GM/50 ML RTUPB IV SCH (14:00)
[2020-04-27] MEDS: KETOROLAC TROMETHAMINE INJ/PF 30 MG/1 ML SDV IV SCH ×2 (15:11→21:50)
[2020-04-27] MEDS: CEFAZOLIN SODIUM 2 GM in DEXTROSE 5%-WATER 100 ML IV SCH ×2 (15:14→21:49)
[2020-04-27] MEDS ORDERED: ROCURONIUM BROMIDE INJ 50 MG/5 ML VIAL IV ONE (15:21)
[2020-04-27] MEDS ORDERED: DEXAMETHASONE SOD PHOSPHATE INJ 4 MG/1 ML VIAL ONE (15:21)
[2020-04-27] MEDS ORDERED: PHENYLEPHRINE HCL INJ/PF 10 MG/1 ML SDV ONE (15:21)
[2020-04-27] MEDS ORDERED: SUCCINYLCHOLINE CHLORIDE INJ 200 MG/10 ML VIAL ONE (15:21)
[2020-04-27] MEDS ORDERED: GLYCOPYRROLATE 1 MG/5 ML VIAL ONE (15:21)
[2020-04-27] MEDS ORDERED: NEOSTIGMINE METHYLSULFATE 10 MG/10 ML VIAL ONE (15:21)
[2020-04-27] MEDS: GABAPENTIN 100 MG CAPSULE PO SCH (21:50)
[2020-04-28] MEDS: TRAMADOL HCL 50 MG TABLET PO PRN ×2 (02:07→21:37)
[2020-04-28] MEDS: KETOROLAC TROMETHAMINE INJ/PF 30 MG/1 ML SDV IV SCH ×2 (05:20→13:10)
[2020-04-28] MEDS: ACETAMINOPHEN 325 MG TABLET PO SCH ×4 (05:20→23:18)
[2020-04-28] MEDS ORDERED: CELECOXIB 200 MG CAPSULE PO SCH (10:00)
[2020-04-28] MEDS ORDERED: (PENDING PHARMACY ID) (Lisinopril/Hydrochlorothiazide [Lisinopril-Hctz 20-25 Mg Tab] 1 EAC PO SCH (10:00)
[2020-04-28] MEDS ORDERED: ASPIRIN 325 MG TABLET PO SCH (10:00)
[2020-04-28] MEDS: POLYETHYLENE GLYCOL 3350 POWDER 17 GM/1 PACKET PO SCH (10:01)
[2020-04-28] MEDS: GABAPENTIN 100 MG CAPSULE PO SCH ×2 (10:02→21:37)
[2020-04-28] MEDS: VENLAFAXINE HCL 25 MG TABLET PO SCH (10:03)
[2020-04-28] MEDS: LISINOPRIL 10 MG TABLET PO SCH (10:03)
[2020-04-28] MEDS: HYDROCHLOROTHIAZIDE 25 MG TABLET PO SCH (10:03)
[2020-04-28] MEDS ORDERED: FUROSEMIDE 40 MG TABLET PO ONE ×2 (14:00→17:00)
[2020-04-28] MEDS: SULFAMETHOXAZOLE/TRIMETHOPRIM 800-160 MG TABLET PO SCH (21:37)
[2020-04-29] MEDS: ACETAMINOPHEN 325 MG TABLET PO SCH ×2 (05:20→11:37)
--- NOTE | 2020-04-29 07:40 | PDOC PROGRESS REPORT ---
Subjective Progress Note for:: 04/28/20 Subjective:: Patient doing well, refused PT yesterday. Otherwise reports ability to ambulate on her own and get herself to the bathroom without much pain. Reason For Visit: LEFT HIP POST OPERATIVE SEROMA Physical Exam Vital Signs: Temp Pulse Resp BP Pulse Ox 97.8 F 87 18 105/44 L 95 04/29/20 00:22 04/29/20 00:22 04/29/20 00:22 04/29/20 00:22 04/29/20 00:22 Intake & Output 04/28/20 04/29/20 04/30/20 06:59 06:59 06:59 Intake Total 57785 915 Output Total 100 Balance 38509 915 Weight 104.9 kg 96.1 kg Physical Exam: LLE - Dressing C/D/I, no fluid in vac - NVI - 1+ edema diffusely - Still mild leakage of serous fluid from her skin at the location of the needle aspiration for the hip. Results Laboratory Results: 04/27/20 06:05 04/27/20 06:05 Assessment & Plan - Diagnosis (1) Seroma after procedure Is this a current diagnosis for this admission?: Yes Plan: - Switch to PO bactrim - WBAT - Vac dressing changes every 3-5 days - Follow cultures - will DC with vac and home care for incisional vac changes. (2) Status post total hip replacement, left Is this a current diagnosis for this admission?: Yes - Time Time Spent with patient: Less than 15 minutes
[2020-04-29] MEDS: POLYETHYLENE GLYCOL 3350 POWDER 17 GM/1 PACKET PO SCH (09:05)
[2020-04-29] MEDS: HYDROCHLOROTHIAZIDE 25 MG TABLET PO SCH (09:12)
[2020-04-29] MEDS: GABAPENTIN 100 MG CAPSULE PO SCH (09:12)
[2020-04-29] MEDS: VENLAFAXINE HCL 25 MG TABLET PO SCH (09:12)
[2020-04-29] MEDS: SULFAMETHOXAZOLE/TRIMETHOPRIM 800-160 MG TABLET PO SCH (09:12)
[2020-04-29] MEDS: LISINOPRIL 10 MG TABLET PO SCH (09:13)
[2020-04-29] MEDS ORDERED: BUPRENORPHINE TOP SCH (10:00)
--- NOTE | 2020-04-29 10:06 | PDOC PROGRESS REPORT ---
Subjective Progress Note for:: 04/29/20 Subjective:: Patient doing well this morning. Has been able to ambulate with physical therapy yesterday and is doing well on her own as well. No overnight events patient wishes to return home today. Reason For Visit: LEFT HIP POST OPERATIVE SEROMA Physical Exam Vital Signs: Temp Pulse Resp BP Pulse Ox 98.3 F 80 17 128/51 H 98 04/29/20 08:38 04/29/20 07:58 04/29/20 07:58 04/29/20 07:58 04/29/20 07:58 Intake & Output 04/28/20 04/29/20 04/30/20 06:59 06:59 06:59 Intake Total 82206 915 Output Total 100 Balance 89301 915 Weight 104.9 kg 96.1 kg Physical Exam: No acute distress, alert and orient x3 Left lower extremity -Pulses 2+ distally -Compartments soft -Sensation grossly intact to L3-4-5 S1 -Motor grossly intact to EHL TA gastroc and quad -Wound clean dry and intact, minimal VAC output. Results Laboratory Results: 04/27/20 06:05 04/27/20 06:05 Assessment & Plan - Diagnosis (1) Seroma after procedure Is this a current diagnosis for this admission?: Yes Plan: Cultures still negative Patient wishes to return home, will send home today on Bactrim Will follow CRP Weightbearing as tolerated Sent home with wound VAC and home care to change every 3 days Follow me in the office in 10 days I will follow cultures and if positive, will change antibiotics as needed. (2) Status post total hip replacement, left Is this a current diagnosis for this admission?: Yes - Time Time Spent with patient: Less than 15 minutes
[2020-04-29 19:54] VITALS: BP 136/51
[2020-04-30] MEDS ORDERED: FUROSEMIDE 20 MG TABLET PO SCH (10:00)
== END 2020-04-29 19:54 | disposition home health service (06) | DRG 921 ==
LOC: OROUT 05:24 → 4S 10:21 → OROUT 11:16 → 4S 11:17
PROVIDERS: ADMIT Orthopaedic Surgery; ATTEND Orthopaedic Surgery
PROC: 0J9M0ZX Drainage of Left Upper Leg Subcutaneous Tissue and Fascia, Open Approach, Diagnostic (ICD-10-PCS; principal; 2020-04-27 08:00)
DX: L76.34 Postprocedural seroma of skin and subcutaneous tissue following other procedure (principal); I10 Essential (primary) hypertension; K21.9 Gastro-esophageal reflux disease without esophagitis; M79.7 Fibromyalgia; F32.9 Major depressive disorder, single episode, unspecified; Y83.8 Other surgical procedures as the cause of abnormal reaction of the patient, or of later complication, without mention of misadventure at the time of the procedure; Y92.018 Other place in single-family (private) house as the place of occurrence of the external cause; Z96.642 Presence of left artificial hip joint; Z79.899 Other long term (current) drug therapy; Z79.82 Long term (current) use of aspirin; Z20.828 Contact with and (suspected) exposure to other viral communicable diseases
CPT/HCPCS: 00400; 36415; 80048; 81001; 85025; 87070; 87075; 87205; 87635; C9803; J0330; J0690; J1100; J1885; J2250; J2270; J2370; J2405; J2704; J2710; J3010; J3370; J3490; J7060